=== PATIENT | female | born 1990 | race Caucasian/White ===

== ENCOUNTER 2019-08-10 10:59 | Emergency (ER) | payer OTHER ==
[~2019-08-10] VITALS: Ht 165.1 cm; Wt 56.7 kg
[2019-08-10] MEDS ORDERED: ZYRTEC10 MG PO ×2 (12:19→12:21)
[2019-08-10] MEDS ORDERED: KEFLEX500 M1 PO ×2 (12:19→12:21)
[2019-08-10] MEDS ORDERED: PREDNISONE 20 M20 MG PO ×2 (12:19→12:21)
[2019-08-10 12:30] VITALS: BP 118/60
== END 2019-08-10 12:43 | disposition home or self-care (01) ==
LOC: ER 10:59
DX: S00.86XA Insect bite (nonvenomous) of other part of head, initial encounter (principal); S40.862A Insect bite (nonvenomous) of left upper arm, initial encounter; S40.861A Insect bite (nonvenomous) of right upper arm, initial encounter; S20.362A Insect bite (nonvenomous) of left front wall of thorax, initial encounter; S20.361A Insect bite (nonvenomous) of right front wall of thorax, initial encounter; S10.96XA Insect bite of unspecified part of neck, initial encounter; S50.862A Insect bite (nonvenomous) of left forearm, initial encounter; Z90.49 Acquired absence of other specified parts of digestive tract; W57.XXXA Bitten or stung by nonvenomous insect and other nonvenomous arthropods, initial encounter; Y93.89 Activity, other specified; Y92.89 Other specified places as the place of occurrence of the external cause; Y99.8 Other external cause status